=== PATIENT | female | born 2005 | race Caucasian/White ===

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

== ENCOUNTER → 2023-03-10 10:16 | Outpatient (CLI) | payer BC, SELFPAY ==
--- NOTE | ~2023-03-10 | US_ITS ---
EXAMINATION: US OB <= 14 weeks fetus DATE: 03/10/2023 10:45 INDICATION: Uncertain dates. . TECHNIQUE: Real-time transabdominal pelvic ultrasound was performed. COMPARISON: None. FINDINGS: The uterus measures 10.0 x 8.5 x 10.7 cm. There is an intrauterine gestational sac. The crown rump length measures 6.2 cm, which correlates with an estimated gestational age of 12 weeks and 4 day (s) (+/-) 1 week(s) and 1 day(s). heart motion is identified measuring 153 beats per minute (bp m) by M-mode Doppler. The ovaries are not visualized. There is no free fluid in the pelvis. IMPRESSION: 1. Single living intrauterine gestation with estimated date of delivery of 09/18/2023. Reviewed, dictated and finalized at location E. BUFFER IMPRESSION: 1. Single living intrauterine gestation with estimated date of delivery of 09/03.
== END ==
PROVIDERS: PCP Obstetrics & Gynecology; Visit Provider Obstetrics & Gynecology
DX: Z36.87 Encounter for antenatal screening for uncertain dates (principal)
CPT/HCPCS: 76801